=== PATIENT | female | born 1945 | race Caucasian/White ===

== ENCOUNTER → 2017-04-20 | Outpatient (CLI) | payer MEDICARE ==
--- NOTE | 2017-04-21 10:37 | MM ---
Reason for exam: screening (asymptomatic). Last mammogram was performed 1 year ago. History: Patient is postmenopausal. Benign excisional biopsy of the right breast, 1972. Took hormonal contraceptives for 10 years beginning at age 20. Physical Findings: A clinical breast exam by your physician is recommended on an annual basis and results should be correlated with mammographic findings. MG 3D Screening Mammo W/Cad Bilateral CC and MLO view(s) were taken. Prior study comparison: April 17, 2016, bilateral MG 3d screening mammo w/cad. January 18, 2015, bilateral MG screening mammo w CAD. The breast tissue is heterogeneously dense. This may lower the sensitivity of mammography. No significant changes when compared with prior studies. ASSESSMENT: Benign, BI-RAD 2 RECOMMENDATION: Routine screening mammogram of both breasts in 1 year.
== END | disposition home or self-care (01) ==
LOC: RADMAMWWP 13:26
PROVIDERS: ATTEND Pediatrics
DX: Z12.31 Encounter for screening mammogram for malignant neoplasm of breast (principal)
CPT/HCPCS: 77063; G0202

== ENCOUNTER → 2017-09-20 | Outpatient (CLI) | payer MEDICARE ==
--- NOTE | 2017-09-20 19:20 | ECHOF ---
Referral Reason:I48.2 Chronic Atrial Fibrillation MEASUREMENTS -------- HEIGHT: 154.9 cm WEIGHT: 83.5 kg BP: RVIDd: 2.7 cm (< 3.3) IVSd: 1.1 cm (0.6 - 1.1) LVIDd: 3.3 cm (3.9 - 5.3) LVPWd: 1.1 cm (0.6 - 1.1) IVSs: 1.5 cm LVIDs: 1.6 cm LVPWs: 1.5 cm LAESV Index (A-L): 26.30 ml/m Ao Diam: 2.5 cm (2.0 - 3.7) AV Cusp: 1.3 cm (1.5 - 2.6) LA Diam: 4.0 cm (2.7 - 3.8) MV E Jaime: 1.85 m/s MV DecT: 237 ms MV A Jaime: 0.80 m/s MV E/A Ratio: 2.32 AR PHT: 522 ms RAP: 5.00 mmHg RVSP: 45.24 mmHg FINDINGS -------- Atrial fibrillation. This was a technically adequate study. The left ventricular size is normal. There is borderline concentric left ventricular hypertrophy. Overall left ventricular systolic function is normal with, an EF between 55 - 60 %. The right ventricle is normal in size and function. Normal LA size by volume 22+/-6 ml/m2. The right atrium is normal in size. Aortic valve is trileaflet and is mildly thickened. There is [id number] aortic regurgitation. There is no evidence of aortic stenosis. There is trace to mild mitral regurgitation. Normally functioning bioprosthetic mitral valve. Moderate tricuspid regurgitation present. There is mild to moderate pulmonary hypertension. The r ight ventricular systolic pressure, as measured by Doppler, is 45.24mmHg. Trace/mild (physiologic) pulmonic regurgitation. The aortic root size is normal. Normal inferior vena cava with normal inspiratory collapse consistent with estimated right atrial pre ssure of 5 mmHg. The pericardium is normal. There is no pericardial effusion. CONCLUSIONS -------- 1. Atrial fibrillation. 2. This was a technically adequate study. 3. The left ventricular size is normal. 4. There is borderline concentric left ventricular hypertrophy. 5. Overall left ventricular systolic function is normal with, an EF between 55 - 60 %. 6. The right ventricle is normal in size and function. 7. Normal LA size by volume 22+/-6 ml/m2. 8. Aortic valve is trileaflet and is mildly thickened. 9. There is [id number] aortic regurgitation. 10. There is trace to mild mitral regurgitation. 11. Normally functioning bioprosthetic mitral valve. 12. The right ventricular systolic pressure, as measured by Doppler, is 45.24mmHg. 13. Trace/mild (physiologic) pulmonic regurgitation. 14. The aortic root size is normal. 15. There is no pericardial effusion. [employer] MANAGER: Hima Daniel RDCS
== END | disposition home or self-care (01) ==
LOC: RADECHMAIN 12:13
PROVIDERS: ATTEND Internal Medicine Cardiovascular Disease
DX: I35.8 Other nonrheumatic aortic valve disorders (principal); I48.91 Unspecified atrial fibrillation
CPT/HCPCS: 93225; 93226; 93306

== ENCOUNTER → 2018-09-26 | Outpatient (CLI) | payer MEDICARE, OTHER ==
--- NOTE | 2018-09-27 13:32 | BD ---
EXAMINATION TYPE: Axial Bone Density DATE OF EXAM: 09/26/2018 COMPARISON: Bone density January 26, 2013 CLINICAL HISTORY: Screening for osteoporosis. Postmenopausal female. Height: 61 Weight: 178.9 FRAX RISK QUESTIONS: Alcohol (3 or more units per day): no Family History (Parent hip fracture): no Glucocorticoids (More than 3mos): no (Ex: prednisone, prednisolone, methylprednisolone, dexamethasone, and hydrocortisone). History of Fracture in Adulthood: no Secondary Osteoporosis: 1. Type 1 Diabetes: no 2. Hyperthyroidism: no 3. Menopause before 45: no 4. Malnutrition: no 5. Chronic liver disease: no Rheumatoid Arthritis: no Current Tobacco Use: no RISK FACTORS HISTORY OF: Family History of Osteoporosis: no Active: sometimes Diet low in dairy products/other sources of calcium: no Postmenopausal woman: age 50 Lost more than 2 inches in height since high school: no MEDICATIONS: warfarin, cardivol, lisinopril, lovastatin Additional History: EXAM MEASUREMENTS: Bone mineral densitometry was performed using the [employer] System. Bone mineral density as measured about the Lumbar spine is: ----- L1-L4(G/cm2): 1.161 T Score Values are as follows: ----- L2: -1.1 ----- L3: -0.1 ----- L4: 0.9 ----- L1-L4: -0.2 Bone mineral density has: increased 5.3 % since study of: 01.26.2013 Bone mineral density about the R hip (g/cm2): 0.899 Bone mineral density about the L hip (g/cm2): 0.878 T Score values are as follows: -----R Neck: -1.0 -----L Neck: -1.1 -----R Total: -0.9 -----L Total: -0.6 Bone mineral density has: decreased -0.2 % since study of: 01.26.2013 IMPRESSION: Osteopenia (T Score between -2.5 and -1) at femoral neck level in the left hip. Bone density fairly s table from prior. There remains slightly increased risk of fracture and the patient may be considered for treatment. Re-Screen 2-5 years. NOTE: T-SCORE=SD OF THE YOUNG ADULT MEAN.
--- NOTE | 2018-09-28 09:05 | MM ---
Reason for exam: screening (asymptomatic). Last mammogram was performed 1 year and 5 months ago. History: Patient is postmenopausal. Benign excisional biopsy of the right breast, 1973. Took hormonal contraceptives for 10 years beginning at age 20. Physical Findings: A clinical breast exam by your physician is recommended on an annual basis and results should be correlated with mammographic findings. MG 3D Screening Mammo W/Cad Bilateral CC and MLO view(s) were taken. Prior study comparison: April 20, 2017, bilateral MG 3d screening mammo w/cad. April 17, 2016, bilateral MG 3d screening mammo w/cad. There are scattered fibroglandular densities. No significant changes when compared with prior studies. ASSESSMENT: Negative, BI-RAD 1 RECOMMENDATION: Routine screening mammogram of both breasts in 1 year.
== END | disposition home or self-care (01) ==
LOC: RADMAMWWP 08:16
PROVIDERS: ATTEND Family Medicine
DX: Z12.31 Encounter for screening mammogram for malignant neoplasm of breast (principal); M85.852 Other specified disorders of bone density and structure, left thigh; M85.88 Other specified disorders of bone density and structure, other site
CPT/HCPCS: 77063; 77067; 77080

== ENCOUNTER → 2019-01-27 | Outpatient (CLI) | payer MEDICARE, OTHER ==
[2019-01-27 09:01] LABS: Anisocytosis Slight; Basophils # (A) 0.1 k/uL (0-0.2); Basophils % (A) 1 %; Eosinophils # (A) 0.3 k/uL (0-0.7); Eosinophils % (A) 4 %; HCT 42.6 % (34.0-46.0); HGB 14.9 gm/dL (11.4-16.0); Hyperchromasia Slight; Lymphocytes # (A) 2.3 k/uL (1.0-4.8); Lymphocytes % (A) 34 %; MCH 30.2 pg (25.0-35.0); MCHC 34.9 g/dL (31.0-37.0); MCV 86.5 fL (80.0-100.0); Mean Platelet Volume 7.5; Monocytes # (A) 0.4 k/uL (0-1.0); Monocytes % (A) 6 %; Neutrophils # (A) 3.5 k/uL (1.3-7.7); Neutrophils % (A) 51 %; Platelet Count 241 k/uL (150-450); RBC 4.93 m/uL (3.80-5.40); RDW 16.1 % (11.5-15.5); WBC 6.8 k/uL (3.8-10.6)
[2019-01-27 18:43] LABS: African American GFR (CKD) 56.9 (60.0-200.0); Albumin 4.6 g/dL (3.80-4.90); Albumin/Globulin Ratio 3.07 (1.60-3.17); Anion Gap 11.8 mmol/L (4.00-12.00); BUN/Creat Ratio 24.55 Ratio (12.00-20.00); Calcium 9.4 mg/dL (8.7-10.3); Carbon Dioxide 25.2 mmol/L (21.6-31.8); Globulin 1.5 g/dL (1.6-3.3); LDL Cholesterol,Calculated 77.2 mg/dL (0.0-131.0); Potassium 4.2 mmol/L (3.5-5.5); Total Bilirubin 0.7 mg/dL (0.2-1.2); Total Protein 6.1 g/dL (6.2-8.2); VLDL Calculation 37.8 mg/dL (5.00-40.00)
== END | disposition home or self-care (01) ==
LOC: LABWHC1 08:21
PROVIDERS: ATTEND Internal Medicine Cardiovascular Disease
DX: I48.2 Chronic atrial fibrillation (principal); I05.0 Rheumatic mitral stenosis; I35.1 Nonrheumatic aortic (valve) insufficiency; I25.810 Atherosclerosis of coronary artery bypass graft(s) without angina pectoris; I10 Essential (primary) hypertension; E78.2 Mixed hyperlipidemia
CPT/HCPCS: 36415; 80053; 80061; 82550; 85025

== ENCOUNTER → 2019-03-30 | Outpatient (CLI) | payer MEDICARE, OTHER | END | disposition home or self-care (01) | LOC: RADECHMAIN 11:05 | PROVIDERS: ATTEND Internal Medicine Cardiovascular Disease | DX: I48.91 Unspecified atrial fibrillation (principal) | CPT/HCPCS: 93225; 93226 ==

== ENCOUNTER → 2021-01-20 | Outpatient (CLI) | payer MEDICARE, OTHER ==
--- NOTE | 2021-01-20 15:42 | MR ---
EXAMINATION TYPE: MR brain wo con DATE OF EXAM: 01/20/2021 3:24 PM COMPARISON: NONE HISTORY: Concussion from slip and fall in August 2020 FINDINGS: The ventricles, basal cisterns and sulci overlying the cerebral convexities are mildly enlarged. There is evidence of mild to moderate periventricular white matter ischemic demyelination. Remote deep white matter insults are also noted. No acute edema is seen on diffusion weighted imaging. There is no evidence for midline shift or mass effect. Acute intracranial hemorrhage or extra-axial collection is not evident. The paranasal sinuses and mastoid air cells are well-aerated. Incidental note is made of the right pa rotid lesion is partially cystic and measures 1.3 cm. Further evaluation with CT and/or ultrasound is advised. IMPRESSION: 1. Age-related atrophic and chronic small vessel ischemic change. No acute intracranial process at t his time. 2. Incidental note is made of the right parotid lesion is partially cystic and measures 1.3 cm. Furth er evaluation with CT and/or ultrasound is advised.
== END | disposition home or self-care (01) ==
LOC: RADMRIMAIN 14:27
PROVIDERS: ATTEND Family Medicine
DX: I67.82 Cerebral ischemia (principal)
CPT/HCPCS: 70551

== ENCOUNTER → 2021-03-07 | Outpatient (CLI) | payer MEDICARE, OTHER ==
--- NOTE | 2021-03-08 07:55 | US ---
EXAMINATION TYPE: US thyroid st tissue head/neck DATE OF EXAM: 03/07/2021 COMPARISON: MRI brain January 20, 2021 CLINICAL HISTORY: R22.1 Localized swelling, mass and lump, neck, R93.89 Abnorm. right parotid nodule visualized on recent MRI brain. mixed lesion right parotid gland = 1.4 x 1.2 x 1.4cm Corresponding to MRI there is a well-defined hypoechoic 1.4 cm right parotid mass anteriorly with inc reased through transmission that is avascular. IMPRESSION: As above. Neoplasm cannot be excluded. Favor complex cystic etiology over avascular amberly d lesion. Advise ENT referral. Consider ultrasound-guided sampling.
== END | disposition home or self-care (01) ==
LOC: RADUSWWP 16:37
PROVIDERS: ATTEND Family Medicine
DX: K11.8 Other diseases of salivary glands (principal)
CPT/HCPCS: 76536

== ENCOUNTER → 2024-06-15 | Outpatient (CLI) | payer MEDICARE ==
--- NOTE | 2024-06-15 22:50 | MR ---
EXAMINATION TYPE: MR shoulder RT wo con DATE OF EXAM: 06/15/2024 1:19 PM COMPARISON: None. CLINICAL INDICATION: Female, 79 years old with history of M25.511 RH SHOULDER PAIN, Right shoulder pa in x1 month, IV Contrast: cc (None if empty) TECHNIQUE: Multiplanar, multisequence imaging of the right shoulder is performed without contrast. FINDINGS: Rotator Cuff: Intact infraspinatus tendon. Increased signal in the supraspinatus tendon with large te ar involving posterior one third fibers measuring 7 mm AP diameter sagittal image 8 x 12 mm transvers zora coronal image 16. Intact subscapularis tendon with surrounding fluid. Mild atrophy of the suprasp inatus muscle bulk. Acromioclavicular Joint: Moderate spurring and narrowing at the acromioclavicular joint. Mild/moderat e capsular hypertrophy. Type III distal acromion is noted. Glenohumeral Joint: Large joint effusion. Narrowing is seen. No significant spurring. Labrum: The labrum appears grossly intact given limitation of non-arthrogram study. Biceps Tendon: The long head of biceps is in normal location within bicipital groove. Increased signa l and thickening of the intracapsular portion long head of biceps tendon. Bone marrow signal: Marked heterogeneous increased T2 signal throughout the femoral head extending in to the neck and proximal diaphysis. Some susceptibility artifact in the proximal metadiaphysis is not ed and should be correlated with plain film. Other: No additional significant abnormality is appreciated. IMPRESSION: 1. Tendinosis with significant full thickness retracted tear of the posterior one third fibers of the supraspinatus tendon. 2. Moderate degenerative changes including navicular joint with type III distal acromion noted. 3. Large glenohumeral joint effusion. 4. Marked abnormal bone marrow edema throughout the proximal humerus. [facility], , 06/15/2024 10:47 PM
== END | disposition home or self-care (01) ==
LOC: RADMRIMAIN 11:58
PROVIDERS: ATTEND Family Medicine
DX: M75.121 Complete rotator cuff tear or rupture of right shoulder, not specified as traumatic (principal); M25.411 Effusion, right shoulder; R60.9 Edema, unspecified